=== PATIENT | male | born 1945 | race Caucasian/White ===

== ENCOUNTER 2017-04-08 09:42 | Inpatient (IN) | payer OTHER ==
[~2017-04-08] VITALS: Ht 177.8 cm; Wt 77.1 kg
[~2017-04-08 09:42] MED LIST: ADVAIR 100/501 DISK IH; ADVAIR HFA120 INHALA IH; DEXILANT60 MG PO; HYDROCODON-ACE1 EAC7 PO; PROAIR HFA8.5 GM IH
[2017-04-08 10:29] LABS: MCH 29.8 PG (29.0-34.0); MCHC 33.2 G/DL (30.0-36.0); MCV 89.9 FL (86-99); MEAN PLAT.VOLUME 9.5 uM^3 (9.0-12.4); PLATELET COUNT 250 K/uL (156-360); RBC DIS.WIDTH-CV 13.3 % (11.8-14.6); RBC DIS.WIDTH-SD 43.6 % (39-53); RED BLOOD COUNT 4.56 M/uL (4.00-5.50); WHITE BLOOD COUNT 5.8 K/uL (4.1-10.2)
[2017-04-08 10:38] LABS: PROTHROMBIN TIME 10.1 (9.2-11.2); PTT 31.1 (25-32)
[2017-04-08 16:12] VITALS: BP 193/86
[2017-04-08 17:12] VITALS: BP 160/74
[2017-04-08 20:00] VITALS: BP 140/66
[2017-04-09 00:03] VITALS: BP 144/62
[2017-04-09 04:00] VITALS: BP 152/66
[2017-04-09 06:13] LABS: HEMATOCRIT 39.8 % (38.0-50.0); MCH 30.2 PG (29.0-34.0); MCHC 33.2 G/DL (30.0-36.0); MCV 91.1 FL (86-99); MEAN PLAT.VOLUME 9.6 uM^3 (9.0-12.4); PLATELET COUNT 226 K/uL (156-360); RBC DIS.WIDTH-CV 13.2 % (11.8-14.6); RBC DIS.WIDTH-SD 44.5 % (39-53); RED BLOOD COUNT 4.37 M/uL (4.00-5.50); WHITE BLOOD COUNT 5.5 K/uL (4.1-10.2)
[2017-04-09 06:50] LABS: ANION GAP 7 MEQ/L (2-14); CHLORIDE 103 MEQ/L (99-109); GFR ESTIMATE (CALCULATED) 58 mL/min/; GLUCOSE 113 mg/dL (70-99); POTASSIUM 4.4 MEQ/L (3.7-5.4); SAMPLE HEMOLYSIS CHECK 0; SAMPLE ICTERIC CHECK 0; SAMPLE LIPEMIA CHECK 0; SODIUM 140 MEQ/L (136-147); UREA NITROGEN (BUN) 14 mg/dL (9-23)
[2017-04-09 07:44] VITALS: BP 133/67
[2017-04-09 16:25] VITALS: BP 155/66
[2017-04-09 19:49] VITALS: BP 105/58
[2017-04-10] VITALS (7 sets, daily range): BP systolic 110–151; BP diastolic 60–68
[2017-04-11 03:06] VITALS: BP 142/65
[2017-04-11 10:05] VITALS: BP 138/65
[2017-04-11] MEDS ORDERED: AMLODIPINE BESYL5 MG PO ×2 (15:45→15:49)
[2017-04-11] MEDS ORDERED: ADVAIR HFA120 INHALA IH (15:45)
== END 2017-04-11 16:30 | disposition home or self-care (01) | DRG 201 ==
LOC: OPR 09:42 → EDSTATUS 10:00 → OPR 10:00 → 2SOUTH 13:01 → 5EAST 13:01
PROVIDERS: Internal Medicine Pulmonary Disease; Physician Assistant Medical
DX: J95.811 Postprocedural pneumothorax (principal); J95.812 Postprocedural air leak; Y84.8 Other medical procedures as the cause of abnormal reaction of the patient, or of later complication, without mention of misadventure at the time of the procedure; R91.1 Solitary pulmonary nodule; J44.9 Chronic obstructive pulmonary disease, unspecified; I10 Essential (primary) hypertension; Z87.891 Personal history of nicotine dependence
CPT/HCPCS: 71010; 71020; 71021; 77012; 80048; 85027; 85610; 85730; 88305; 94640; 94640 76; 99202; C1729; C1769; J1650; J3010